=== PATIENT | female | born 1960 | race Caucasian/White ===

== ENCOUNTER → 2017-07-05 | Day surgery (SDC) | payer OTHER ==
[~2017-07-05] MED LIST: BUPIVACAINE/EPINEPHRINE 0.5% PF 30 ML VIAL ONE; KETOROLAC TROMETHAMINE 30 MG/ML (IVP) VIAL IV PUSH ONE; LACTATED RINGER'S 1000 ML INJ 1,000 ML ONE; LEVA500T33 PO; LORT5TAB PO; MIDAZOLAM HCL 2 MG/2 ML VIAL ONE; ONDANSETRON HCL 4 MG/2 ML VIAL IV PUSH ONE; PROPOFOL 200 MG/20 ML AMP IV ONE; REST15CA PO; ceFAZolin INJ 1,000 MG VIAL ONE
--- NOTE | 2017-07-05 13:57 | MP ---
cc: Landry Horn MD DATE OF OPERATION: 07/05/2017 DATE OF PROCEDURE: 07/05/2017. PREOPERATIVE DIAGNOSIS: Right knee medial meniscus tear. POSTOPERATIVE DIAGNOSIS: Right knee medial meniscus tear. PROCEDURE PERFORMED: Right knee arthroscopic partial medial meniscectomy. SURGEON: Landry Horn MD ANESTHESIA: General. ESTIMATED BLOOD LOSS: Less than 10 mL. TOURNIQUET TIME: 0 minutes. COMPLICATIONS: None. JUSTIFICATION: This patient is a 56-year-old female who injured the right knee. She has persistence of the pain; it is localized to the medial compartment. She has failed conservative treatment. Clinical exam as well as MRI confirmed the above-named findings. The patient was counseled of the risks, benefits and alternatives to the above-named proposed surgical procedure. She did wish to proceed with surgery. PROCEDURE IN DETAIL: Written consent was obtained. The patient was identified by name, taken to the operating room, placed supine on the operating room table. General anesthesia was administered as well as 1 gram of IV Ancef. The right thigh was carefully placed in a well-padded leg stevenson. All bony prominences and pressure points were well padded. The right lower extremity was prepped and draped using isopropyl alcohol, Hibiclens solution and DuraPrep solution. After a timeout was performed, standard medial and lateral parapatellar arthroscopic portals were established. 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 The medial compartment revealed a very large complex tear of the posterior horn of the medial meniscus. An arthroscopic biter followed by an arthroscopic shaver was introduced into the medial compartment to perform partial meniscectomy. The meniscal rim was probed and noted to be stable. 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 The intercondylar notch over the anterior and posterior cruciate ligaments was noted to be intact. The lateral compartment was free of meniscal pathology and significant chondromalacia. The shaver was introduced into the anterior patellofemoral compartment and a gentle chondroplasty along the undersurface of the patella was performed. At the conclusion of the surgical procedure 30 mL of 0.5% Marcaine with epinephrine was injected into the knee joint. The arthroscopic portals were closed with 3-0 Prolene suture. Sterile dressings were applied. The patient tolerated the procedure well. There were no intraoperative complications noted. MD PATTI Martinez/VERONIQUE , 01:34 PM , 01:55 PM
== END | disposition home or self-care (01) ==
LOC: ESDC 11:46
PROVIDERS: ATTEND Orthopaedic Surgery Sports Medicine
DX: S83.231A Complex tear of medial meniscus, current injury, right knee, initial encounter (principal)
CPT/HCPCS: 01400; 29881; J0690; J1885; J2250; J2405; J3010; J7120